=== PATIENT | male | born 1980 | race Caucasian/White ===

== ENCOUNTER 2017-04-30 10:29 | Emergency (ER) | payer OTHER ==
[~2017-04-30] VITALS: Ht 175.3 cm; Wt 91.2 kg
[2017-04-30 10:37] VITALS: BP 136/78
== END 2017-04-30 13:11 | disposition home or self-care (01) ==
LOC: ED 10:29
DX: S16.1XXA Strain of muscle, fascia and tendon at neck level, initial encounter (principal); Z86.79 Personal history of other diseases of the circulatory system; V49.9XXA Car occupant (driver) (passenger) injured in unspecified traffic accident, initial encounter; Y93.89 Activity, other specified; Y99.8 Other external cause status; Y92.411 Interstate highway as the place of occurrence of the external cause
CPT/HCPCS: J1885